=== PATIENT | male | born 2000 ===

== ENCOUNTER 2019-06-24 20:04 | Emergency (ER) | payer OTHER ==
--- NOTE | 2019-06-24 21:32 | RAD ---
Portable frontal chest radiograph: 06/24/2019 COMPARISON: None HISTORY: Chest pain, jaw pain, headache, vomiting FINDINGS: Lungs are clear. Heart and mediastinal contours appear within normal limits. IMPRESSION: No acute findings.
== END 2019-06-24 21:41 | disposition home or self-care (01) ==
LOC: ERS 20:04
DX: R07.9 Chest pain, unspecified (principal)
CPT/HCPCS: 36415; 71045; 84484; 93005